=== PATIENT | female | born 1975 | race Caucasian/White ===

== ENCOUNTER 2017-03-01 09:31 | Emergency (ER) | payer BC ==
[2017-03-01 09:53] VITALS: BP 127/86
--- NOTE | 2017-03-01 11:36 | UC ---
Throat Pain/Nasal Sudeep HPI - HPI Summary HPI Summary: 3 WEEKS OF SORE THROAT, DID HAVE COUGH AND CONGESTION THEN DIAGNOSED AT THE TIME WITH VIRAL BRONCHITIS AT FIVE STAR; COUGH HAS RESOLVED. STILL HAVING CONGESTION AND SORE THROAT. NO FEVER. - History of Current Complaint Chief Complaint: UCGeneralIllness Stated Complaint: SORE THROAT Time Seen by Provider: 03/01/17 10:35 Hx Obtained From: Patient Hx Last Menstrual Period: 02/05/17 Onset/Duration: Gradual Onset, Lasting Weeks, Still Present Severity: Moderate Pain Intensity: 0 Pain Scale Used: 0-10 Numeric Cough: None Associated Signs & Symptoms: Positive: Hoarseness, Sinus Discomfort - Epiglottits Risk Factors Epiglottis Risk Factors: Negative - Allergies/Home Medications Allergies/Adverse Reactions: Allergies Allergy/AdvReac Type Severity Reaction Status Date / Time No Known Allergies Allergy Verified 03/01/17 09:49 Home Medications: Home Medications Phenol 1.4% T[place]* [Chloroseptic Throat Tougaloo*] 03/01/17 [History] PMH/Surg Hx/FS Hx/Imm Hx Previously Healthy: Yes - Surgical History Surgical History: Yes Surgery Procedure, Year, and Place: 2000 RIGHT UPPER THIGH HEMATOMA Surgery [facility]. 2013 [place] - Social History Alcohol Use: Occasionally Alcohol Amount: MAYBE 1-2 DRINKS Q3 MONTHS Substance Use Type: None Smoking Status (MU): Never Smoked Tobacco Have You Smoked in the Last Year: No Household Exposure Type: Cigarettes - Immunization History Most Recent Influenza Vaccination: 2013 Most Recent Tetanus Shot: 10 years Most Recent Pneumonia Vaccination: na Review of Systems Constitutional: Negative Skin: Negative Eyes: Negative ENT: Sore Throat, Sinus Congestion Respiratory: Negative Cardiovascular: Negative Gastrointestinal: Negative Genitourinary: Negative Motor: Negative Neurovascular: Negative Musculoskeletal: Negative Neurological: Negative Psychological: Negative All Other Systems Reviewed And Are Negative: Yes Physical Exam Triage Information Reviewed: Yes Appearance: Well-Appearing, No Pain Distress, Well-Nourished Vital Signs: Initial Vital Signs Temp 98.6 F 03/01/17 09:49 Pulse 80 03/01/17 09:49 Resp 16 03/01/17 09:49 BP 127/86 03/01/17 09:49 Pulse Ox 96 03/01/17 09:49 Vital Signs Reviewed: Yes Eye Exam: Normal ENT: Positive: Pharyngeal erythema, TM bulging, TM dull Dental Exam: Normal Neck exam: Normal Neck: Positive: Supple, Nontender, No Lymphadenopathy Respiratory Exam: Normal Respiratory: Positive: Chest non-tender, Lungs clear, Normal breath sounds, No respiratory distress, No accessory muscle use Cardiovascular Exam: Normal Cardiovascular: Positive: RRR, No Murmur, Pulses Normal Abdominal Exam: Normal Musculoskeletal Exam: Normal Neurological Exam: Normal Psychological Exam: Normal Skin Exam: Normal Throat Pain/Nasal Course/Dx - Differential Dx/Diagnosis Differential Diagnosis/HQI/PQRI: Pharyngitis, Sinusitis, Tonsillitis, URI Provider Diagnoses: SINUSITIS; PHARYNGITIS Discharge - Discharge Plan Condition: Stable Disposition: HOME Prescriptions: Amoxicillin/Clavulanate TAB* [Augmentin TAB 875*] 875 mg PO BID #20 tab Patient Education Materials: Pharyngitis (ED), Sinusitis (ED) Referrals: Yen Lee MD [Primary Care Provider] -
== END 2017-03-01 11:00 | disposition home or self-care (01) ==
LOC: UCEAST 09:31
DX: J02.9 Acute pharyngitis, unspecified (principal); J32.9 Chronic sinusitis, unspecified
CPT/HCPCS: 99212; G0463

== ENCOUNTER 2017-11-03 07:14 | Emergency (ER) | payer BC ==
[2017-11-03 07:30] VITALS: BP 147/91
--- NOTE | 2017-11-03 12:14 | UC ---
Joesph Sun Angela, scribed for Lucien Hale MD on 11/03/17 at 0728 . Abdominal Pain Female HPI - HPI Summary HPI Summary: This pt is a 42 y/o female presenting to [facility] c/o left lower quadrant since a couple of days ago. Pt notes her pain is localized to the LLQ and is constant. She reports her pain is 4 to 5 out of 10 in severity and describes it as nonradiating. Pt states nausea. Denies vomiting, fever. Pt notes this pain is similar to when she had diverticulitis. PMHx includes colitis, diverticulitis. - History of Current Complaint Stated Complaint: ABD PAIN Time Seen by Provider: 11/03/17 07:17 Hx Obtained From: Patient Hx Last Menstrual Period: 02/05/17 Onset/Duration: Lasting Days, Still Present Timing: Constant Severity Currently: Moderate Pain Intensity: 5 Pain Scale Used: 0-10 Numeric Location: Discrete At: LLQ Radiates: No Aggravating Factor(s): Nothing Alleviating Factor(s): Nothing Associated Signs and Symptoms: Positive: Nausea. Negative: Fever, Vomiting Allergies/Adverse Reactions: Allergies Allergy/AdvReac Type Severity Reaction Status Date / Time No Known Allergies Allergy Verified 11/03/17 07:30 PMH/Surg Hx/FS Hx/Imm Hx - Additional Past Medical History Additional PMH: PMHx: fracture of calcaneus Other Endocrine History: DENIES: diabetes GI/ History: Diverticulitis Other GI/ History: Colitis, acute cholecystitis, cholecystectomy - Surgical History Surgical History: Yes Surgery Procedure, Year, and Place: 2000 RIGHT UPPER THIGH HEMATOMA Surgery [facility] [place]. 2013 [place] - Family History Known Family History: Positive: Diabetes - Father Family History: Mother: throat CA - Social History Alcohol Use: Occasionally Alcohol Amount: MAYBE 1-2 DRINKS Q3 MONTHS Substance Use Type: None Smoking Status (MU): Never Smoked Tobacco Have You Smoked in the Last Year: No Household Exposure Type: Cigarettes - Immunization History Most Recent Influenza Vaccination: 2013 Most Recent Tetanus Shot: 10 years Most Recent Pneumonia Vaccination: na Review of Systems Constitutional: Negative Skin: Negative Eyes: Negative ENT: Negative Respiratory: Negative Cardiovascular: Negative Gastrointestinal: Abdominal Pain, Nausea, Other - NEG: vomiting Genitourinary: Negative Motor: Negative Neurovascular: Negative Musculoskeletal: Negative Neurological: Negative Psychological: Negative All Other Systems Reviewed And Are Negative: Yes Physical Exam - Summary Physical Exam Summary: VITAL SIGNS: Reviewed. GENERAL: Patient is an obese female who is lying comfortable in the stretcher. Patient is not in any acute distress. HEAD AND FACE: Normocephalic EYES: PERRLA, EOMI x 2. EARS: Hearing grossly intact. MOUTH: Oropharynx within normal limits. NECK: Supple, trachea is midline, no adenopathy, no JVD, no carotid bruit. CHEST: Symmetric, no tenderness at palpation LUNGS: Clear to auscultation bilaterally. No wheezing or crackles. CVS: Regular rate and rhythm, S1 and S2 present, no murmurs or gallops appreciated. ABDOMEN: Soft. Left lower quadrant tenderness. Left pelvic tenderness. Bowel sounds are normal. No abdominal abnormal pulsations. EXTREMITIES: Full ROM in all major joints, no edema, no cyanosis or clubbing. NEURO: Alert and oriented x 3. No acute neurological deficits. Speech is normal and follows commands. SKIN: Dry and warm Triage Information Reviewed: Yes Vital Signs: Initial Vitals Temp Pulse Resp BP Pulse Ox 97.9 F 83 20 147/91 100 11/03/17 07:24 11/03/17 07:24 11/03/17 07:24 11/03/17 07:24 11/03/17 07:24 Vital Signs Reviewed: Yes Abd Pain Female Course/Dx - Course Course Of Treatment: This pt is a 42 y/o female presenting to [facility] c/o left lower quadrant since a couple of days ago. Pt notes her pain is localized to the LLQ and is constant. She reports her pain is 4 to 5 out of 10 in severity and describes it as nonradiating. Pt states nausea. Denies vomiting. Pt notes this pain is similar to when she had diverticulitis. On physical exam pt has left lower quadrant tenderness and left pelvic tenderness. She is in no acute distress. Therefore, she was instructed to go to the emergency room for further assessment. Pt was offered ambulance but she declines ambulance. She will drive to the ED via private car. Pt understands and agrees. All questions were answered to patient satisfaction. Pt will be discharged to go immediately to the emergency department. Pt is hemodynamically stable, alert and oriented x3. The patient was found to have increased blood pressure in UC. The patient will follow up with PCP for better control of BP. - Differential Dx/Diagnosis Provider Diagnoses: Acute abdominal pain Discharge - Sign-Out/Discharge Documenting (check all that apply): Discharge - discharge to home - Discharge Plan Condition: Stable Disposition: HOME Patient Education Materials: Acute Abdominal Pain (ED) Referrals: Yen Lee MD [Primary Care Provider] - Additional Instructions: Please go directly to the Emergency Department for further assessment. Patient declined ambulance. RETURN TO URGENT CARE OR THE ED FOR ANY WORSENING OR NEW SYMPTOMS. The documentation as recorded by the Joesph mensah Angela accurately reflects the service I personally performed and the decisions made by Geoffrey elliott Walter, MD.
== END 2017-11-03 07:32 | disposition home or self-care (01) ==
LOC: UCEAST 07:14
DX: R10.32 Left lower quadrant pain (principal); R11.0 Nausea; K57.92 Diverticulitis of intestine, part unspecified, without perforation or abscess without bleeding
CPT/HCPCS: 99212; G0463

== ENCOUNTER 2017-11-03 08:12 | Emergency (ER) | payer BC ==
[2017-11-03] MEDS ORDERED: NS 0.9% 1000 ML* 2,000 ML IV ONE (08:26)
[2017-11-03 09:05] LABS: ABS Basophils 0 10^3/ul (0-0.2); ABS Eosinophils 0.3 10^3/ul (0-0.6); ABS Neutrophils 12.7 10^3/ul (1.5-7.7); ABS Nucleated RBC 0 10^3/ul; Eosinophil % 1.7 % (0-6); Hematocrit 42 % (35-47); Hemoglobin 13.8 g/dl (12.0-16.0); Lymphocyte % 12.3 % (25-47); Mean Corpuscular HGB Conc 33 g/dl (31-36); Mean Corpuscular Hemoglobin 30 pg (27-31); Mean Corpuscular Volume 90 fL (80-97); Mean Platelet Volume 6.5 um3 (7.4-10.4); Nucleated Red Blood Cells % 0; Platelet Count 353 10^3/ul (150-450); Red Blood Count 4.68 10^6/ul (4.0-5.4); Red Cell Distribution Width 14 % (10.5-15); White Blood Count 16.1 10^3/ul (3.5-10.8)
[2017-11-03 09:17] LABS: EGFR Non-African American 73.3 (>60)
[2017-11-03 09:19] LABS: INR 0.93 (0.77-1.02)
[2017-11-03 10:02] LABS: Urine Appearance Clear; Urine Blood Negative (Negative); Urine Color Yellow; Urine Ketones Negative (Negative); Urine Protein Negative (Negative); Urine Specific Gravity 1.009 (1.010-1.030); Urine Urobilinogen Negative (Negative)
[2017-11-03] MEDS ORDERED: Iohexol 300* (CONTRAST) 10 ML SDV IV ONE (10:30)
--- NOTE | 2017-11-03 11:25 | RAD ---
Indication: Abdominal pain, left lower quadrant pain. Contrast: Administered 150.0 ml of OMNIPAQUE 300 mg/ml CT of the abdomen and pelvis was performed after oral and IV contrast administration. Coronal and sagittal reconstructed images were obtained. The lung bases demonstrate no pleural fluid, nodules or masses. Heart is of normal size without evidence of pericardial effusion. The liver is normal in size. No focal lesions or intrahepatic biliary duct dilatation is noted. The spleen is normal in size. The pancreas demonstrates no mass or pancreatic duct dilatation. The common duct is not dilated. No adrenal masses are noted. The kidneys demonstrate symmetric nephrograms without focal lesions. The pancreas demonstrates no mass or pancreatic duct dilatation. The patient is status post cholecystectomy. No retroperitoneal adenopathy. No dilated loops of bowel are noted. Contrast is noted in the right colon. CT of the pelvis demonstrates wall thickening of the sigmoid colon with underlying diverticulosis. There is infiltration of fat consistent with diverticulitis. No evidence of peridiverticular abscess is noted. Ovaries demonstrates bilateral ovarian cysts. Likely myomatous changes or nabothian cysts are noted. No hernias are noted. Urinary bladder is otherwise unremarkable. IMPRESSION: Diverticulitis of the sigmoid colon without evidence of peridiverticular abscess. There is likely bilateral ovarian cysts present. Low density lesions are noted in the lower uterus or cervix which may represent fibroids or nabothian cysts. Patient is status post cholecystectomy.
[2017-11-03] MEDS ORDERED: metroNIDAZOLE TAB* 250 MG PO ONE (12:24)
[2017-11-03] MEDS ORDERED: Ciprofloxacin TAB* 500 MG PO ONE (12:25)
--- NOTE | 2017-11-03 12:31 | ED ---
Tam Sun Jennifer, scribed for Lane Baumann MD on 11/03/17 at 0831 . Abdominal Pain/Female - HPI Summary HPI Summary: The patient is a 42 year old female who was sent [facility] with LLQ abdominal pain that began yesterday. The patient explains that she had diverticulitis 2-3 years ago, which improved after being given antibiotics. She rates the pain a 4/ 10. She additionally complains of nausea and reports her last bowel movement was yesterday. The patient denies fever, chills, dysuria, vaginal discharge, shortness of breath, and swelling. Her last menstrual period was two weeks ago. - History of Current Complaint Chief Complaint: EDAbdPain Stated Complaint: ABD PAIN-SENT FROM [facility] Hx Obtained From: Patient Hx Last Menstrual Period: 2 weeks ago Onset/Duration: Sudden Onset, Lasting Days - 1 day, Still Present Timing: Constant Severity Initially: Moderate Severity Currently: Moderate Pain Intensity: 4 Pain Scale Used: 0-10 Numeric Location: Discrete At: LLQ Radiates: No Aggravating Factor(s): Nothing Alleviating Factor(s): Nothing Associated Signs and Symptoms: Positive: Other: - nausea. NEGATIVE: fever, chills, dysuria, vaginal discharge, shortness of breath, swelling Allergies/Adverse Reactions: Allergies Allergy/AdvReac Type Severity Reaction Status Date / Time No Known Allergies Allergy Verified 11/03/17 07:30 PMH/Surg Hx/FS Hx/Imm Hx Endocrine/Hematology History: Denies: Hx Diabetes, Hx Thyroid Disease Cardiovascular History: Reports: Hx Hypertension Denies: Hx Congestive Heart Failure, Hx Pacemaker/ICD Respiratory History: Denies: Hx Asthma, Hx Chronic Obstructive Pulmonary Disease (COPD) GI History: Denies: Hx Ulcer Comment Only: Other GI Disorders - 01/2014 DIVERTICULITIS History: Denies: Hx Renal Disease Sensory History: Denies: Hx Contacts or Glasses, Hx Hearing Aid Opthamlomology History: Denies: Hx Contacts or Glasses Psychiatric History: Denies: Hx Panic Disorder - Surgical History Surgery Procedure, Year, and Place: 2000 RIGHT UPPER THIGH HEMATOMA Surgery [facility]. 2013 [place] Hx Anesthesia Reactions: No Infectious Disease History: No Infectious Disease History: Denies: Hx Hepatitis, Hx Human Immunodeficiency Virus (HIV), Traveled Outside the [place] in Last 30 Days - Family History Known Family History: Positive: Hypertension - Maternal and Paternal - Social History Alcohol Use: Occasionally Alcohol Amount: MAYBE 1-2 DRINKS Q3 MONTHS Substance Use Type: Reports: None Smoking Status (MU): Never Smoked Tobacco Have You Smoked in the Last Year: No Review of Systems Negative: Fever, Chills Negative: Shortness Of Breath Positive: Abdominal Pain, Nausea Negative: dysuria, discharge Negative: Edema All Other Systems Reviewed And Are Negative: Yes Physical Exam - Summary Physical Exam Summary: General: well-appearing, no pain distress Skin: warm, color reflects adequate perfusion, dry Head: normal Eyes: EOMI, DEAN ENT: normal Neck: supple, nontender Respiratory: CTA, breath sounds present Cardiovascular: RRR Abdomen: soft, mild tenderness in LLQ Bowel: present Musculoskeletal: normal, strength/ROM intact Neurological: normal, sensory/motor intact, A&O x3 Psychological: affect/mood appropriate Triage Information Reviewed: Yes Vital Signs On Initial Exam: Initial Vitals Temp Pulse Resp BP Pulse Ox 98.5 F 87 18 136/87 98 11/03/17 08:14 11/03/17 08:14 11/03/17 08:14 11/03/17 08:14 11/03/17 08:14 Vital Signs Reviewed: Yes Diagnostics - Vital Signs Vital Signs Temp Pulse Resp BP Pulse Ox 11/03/17 08:14 98.5 F 87 18 136/87 98 - Laboratory Lab Results: Lab Results 11/03/17 11/03/17 11/03/17 Range/Units 08:42 08:42 08:42 WBC 16.1 H (3.5-10.8) 10^3/ul RBC 4.68 (4.0-5.4) 10^6/ul Hgb 13.8 (12.0-16.0) g/dl Hct 42 (35-47) % MCV 90 (80-97) fL MCH 30 (27-31) pg MCHC 33 (31-36) g/dl RDW 14 (10.5-15) % Plt Count 353 (150-450) 10^3/ul MPV 6.5 L (7.4-10.4) um3 Neut % (Auto) 79.2 (38-83) % Lymph % (Auto) 12.3 L (25-47) % [place]aine % (Auto) 6.5 (0-7) % Eos % (Auto) 1.7 (0-6) % Baso % (Auto) 0.3 (0-2) % Absolute Neuts (auto) 12.7 H (1.5-7.7) 10^3/ul Absolute Lymphs (auto) 2.0 (1.0-4.8) 10^3/ul Absolute Monos (auto) 1.0 H (0-0.8) 10^3/ul Absolute Eos (auto) 0.3 (0-0.6) 10^3/ul Absolute Basos (auto) 0 (0-0.2) 10^3/ul Absolute Nucleated RBC 0 10^3/ul Nucleated RBC % 0 INR (Anticoag Therapy) 0.93 (0.77-1.02) APTT 34.0 (26.0-36.3) seconds Sodium 136 L (139-145) mmol/L Potassium 4.4 (3.5-5.0) mmol/L Chloride 103 (101-111) mmol/L Carbon Dioxide 28 (22-32) mmol/L Anion Gap 5 (2-11) mmol/L BUN 16 (6-24) mg/dL Creatinine 0.85 (0.51-0.95) mg/dL Est GFR ( Amer) 94.3 (>60) Est GFR (Non-Af Amer) 73.3 (>60) BUN/Creatinine Ratio 18.8 (8-20) Glucose 97 (70-100) mg/dL Lactic Acid (0.5-2.0) mmol/L Calcium 9.4 (8.6-10.3) mg/dL Total Bilirubin 0.50 (0.2-1.0) mg/dL AST 11 L (13-39) U/L ALT 11 (7-52) U/L Alkaline Phosphatase 68 (34-104) U/L C-Reactive Protein 37.63 H (< 5.00) mg/L Total Protein 7.3 (6.4-8.9) g/dL Albumin 4.1 (3.2-5.2) g/dL Globulin 3.2 (2-4) g/dL Albumin/Globulin Ratio 1.3 (1-3) Lipase 21 (11.0-82.0) U/L Urine Color Urine Appearance Urine pH (5-9) Ur Specific [place] (1.010-1.030) Urine Protein (Negative) Urine Ketones (Negative) Urine Blood (Negative) Urine Nitrate (Negative) Urine Bilirubin (Negative) Urine Urobilinogen (Negative) Ur Leukocyte Esterase (Negative) Urine Glucose (Negative) 11/03/17 11/03/17 Range/Units 08:42 09:50 WBC (3.5-10.8) 10^3/ul RBC (4.0-5.4) 10^6/ul Hgb (12.0-16.0) g/dl Hct (35-47) % MCV (80-97) fL MCH (27-31) pg MCHC (31-36) g/dl RDW (10.5-15) % Plt Count (150-450) 10^3/ul MPV (7.4-10.4) um3 Neut % (Auto) (38-83) % Lymph % (Auto) (25-47) % Blaine % (Auto) (0-7) % Eos % (Auto) (0-6) % Baso % (Auto) (0-2) % Absolute Neuts (auto) (1.5-7.7) 10^3/ul Absolute Lymphs (auto) (1.0-4.8) 10^3/ul Absolute Monos (auto) (0-0.8) 10^3/ul Absolute Eos (auto) (0-0.6) 10^3/ul Absolute Basos (auto) (0-0.2) 10^3/ul Absolute Nucleated RBC 10^3/ul Nucleated RBC % INR (Anticoag Therapy) (0.77-1.02) APTT (26.0-36.3) seconds Sodium (139-145) mmol/L Potassium (3.5-5.0) mmol/L Chloride (101-111) mmol/L Carbon Dioxide (22-32) mmol/L Anion Gap (2-11) mmol/L BUN (6-24) mg/dL Creatinine (0.51-0.95) mg/dL Est GFR ( Amer) (>60) Est GFR (Non-Af Amer) (>60) BUN/Creatinine Ratio (8-20) Glucose (70-100) mg/dL Lactic Acid 0.8 (0.5-2.0) mmol/L Calcium (8.6-10.3) mg/dL Total Bilirubin (0.2-1.0) mg/dL AST (13-39) U/L ALT (7-52) U/L Alkaline Phosphatase (34-104) U/L C-Reactive Protein (< 5.00) mg/L Total Protein (6.4-8.9) g/dL Albumin (3.2-5.2) g/dL Globulin (2-4) g/dL Albumin/Globulin Ratio (1-3) Lipase (11.0-82.0) U/L Urine Color Yellow Urine Appearance Clear Urine pH 5.0 (5-9) Ur Specific [place] 1.009 L (1.010-1.030) Urine Protein Negative (Negative) Urine Ketones Negative (Negative) Urine Blood Negative (Negative) Urine Nitrate Negative (Negative) Urine Bilirubin Negative (Negative) Urine Urobilinogen Negative (Negative) Ur Leukocyte Esterase Negative (Negative) Urine Glucose Negative (Negative) Result Diagrams: 11/03/17 08:42 11/03/17 08:42 Lab Statement: Any lab studies that have been ordered have been reviewed, and results considered in the medical decision making process. - CT CT Abd/Pel CT Interpretation: Positive (See Comments) - Diverticulitis of the sigmoid colon without evidence of peridiverticular abscess. There is likely bilateral ovarian cysts present. Low density lesions are noted in the lower uterus or cervix which may represent fibroids or nabothian cysts. Patient is status post cholecystectomy. Dr. Baumann has reviewed this report. CT Interpretation Completed By: Radiologist Abdominal Pain Fem Course/Dx - Course Course Of Treatment: Medications reviewed. BP noted and advised to follow up with PCP. DISCUSSED RESULTS WITH THE PATIENT. RX CIPRO/FLAGY. DISCUSSED S/SX OF DIVERTICULITIS AND THE NEED TO RETURN TO THE ED IF WORSE. F/U PMD; RETURN IF WORSE. - Diagnoses Provider Diagnoses: HTN (hypertension), Diverticulitis Discharge - Sign-Out/Discharge Documenting (check all that apply): Discharge - Discharge Plan Condition: Stable Disposition: HOME Prescriptions: Ciprofloxacin TAB* [Cipro 500 MG TAB*] 500 mg PO BID #19 tab metroNIDAZOLE [Flagyl 500 MG TAB] 500 mg PO TID #29 tab Patient Education Materials: Diverticulitis (ED), Diverticulitis Diet (ED) Referrals: Yen Lee MD [Primary Care Provider] - Additional Instructions: FOLLOW UP WITH YOUR DOCTOR. RETURN TO THE EMERGENCY DEPARTMENT FOR ANY WORSENING OF YOUR CONDITION; PAIN, FEVER, DEHYDRATION, YOU FEEL ILL, YOU FEEL LIKE PASSING OUT OR QUESTIONS OR CONCERNS. YOUR BLOOD PRESSURE WAS ELEVATED TODAY; FOLLOW UP WITH YOUR PRIMARY CARE DOCTOR WITHIN ONE WEEK. - Billing Disposition and Condition Condition: STABLE Disposition: HOME The documentation as recorded by the Tam mensah Jennifer accurately reflects the service I personally performed and the decisions made by me, Lane Baumann MD.
[2017-11-03 12:58] VITALS: BP 129/86
== END 2017-11-03 13:01 | disposition home or self-care (01) ==
LOC: ED 08:12
DX: I10 Essential (primary) hypertension (principal); K57.92 Diverticulitis of intestine, part unspecified, without perforation or abscess without bleeding; R10.32 Left lower quadrant pain; R11.10 Vomiting, unspecified
CPT/HCPCS: 36415; 74177; 80053; 81003; 83605; 83690; 85025; 85610; 85730; 86140; 99282; A9270-GY; Q9967

== ENCOUNTER 2018-10-01 11:30 | Emergency (ER) | payer BC ==
[2018-10-01 12:56] LABS: ABS Basophils 0.1 10^3/ul (0-0.2); ABS Eosinophils 0.1 10^3/ul (0-0.6); ABS Lymphocytes 2.1 10^3/ul (1.0-4.8); ABS Neutrophils 11.8 10^3/ul (1.5-7.7); ABS Nucleated RBC 0 10^3/ul; Hematocrit 46 % (33-41); Hemoglobin 14.9 g/dL (12.0-16.0); Lymphocyte % 13.6 %; Mean Corpuscular HGB Conc 33 g/dL (31-36); Mean Corpuscular Hemoglobin 29 pg (27-31); Mean Corpuscular Volume 89 fL (80-97); Mean Platelet Volume 6.5 fL (7.4-10.4); Nucleated Red Blood Cells % 0; Platelet Count 398 10^3/uL (150-450); Red Blood Count 5.13 10^6 /uL (3.70-4.87); Red Cell Distribution Width 15 % (10.5-15); White Blood Count 15.1 10^3/uL (3.5-10.8)
[2018-10-01 13:13] LABS: ALT 23 U/L (7-52); AST 18 U/L (13-39); Albumin 3.7 g/dL (3.2-5.2); Albumin/Globulin Ratio 1.2 (1-3); Alkaline Phosphatase 58 U/L (34-104); Anion Gap 4 mmol/L (2-11); BUN/Creatinine Ratio 18.1 (8-20); Blood Urea Nitrogen 15 mg/dL (6-24); C Reactive Protein 49.94 mg/L (<8.01); CO2 Carbon Dioxide 28 mmol/L (22-32); Calcium 8.9 mg/dL (8.6-10.3); Chloride 103 mmol/L (101-111); EGFR African American 90.8 (>60); Glucose 97 mg/dL (70-100); Potassium 4.3 mmol/L (3.5-5.0); Sodium 135 mmol/L (135-145); Total Protein 6.7 g/dL (6.4-8.9)
[2018-10-01 13:18] LABS: HCG Pregnancy < 0.60 mIU/mL
[2018-10-01] MEDS ORDERED: Morphine 4 MG/ML VIAL (1 ml) 4 MG/ML VIAL IV ONE (13:59)
[2018-10-01] MEDS ORDERED: NS 0.9% 1000 ML** 1,000 ML IV ONE (13:59)
[2018-10-01] MEDS ORDERED: Ondansetron INJ* 2 MG/ML VIAL IV ONE (13:59)
[2018-10-01] MEDS ORDERED: Iohexol 300* (CONTRAST) 10 ML SDV IV ONE (14:01)
--- NOTE | 2018-10-01 14:07 | ED ---
Abdominal Pain/Female - HPI Summary HPI Summary: Patient is a 43-year-old female presenting to the ED with a three-day worsening history of mid abdominal pain radiating into the RLQ. History of diverticulitis and cholecystitis with a cholecystectomy. She endorses nausea and vomiting. She endorses diarrhea, but no constipation. Denies any fevers, sweats, chills. Denies any CP or SOB. She endorses early satiety, however continues to try to eat and drink over the past 3 days. - History of Current Complaint Chief Complaint: EDAbdPain Stated Complaint: STOMACH PAIN PER PT Time Seen by Provider: 10/01/18 13:46 Hx Obtained From: Patient Hx Last Menstrual Period: 2 weeks ago ?: No Onset/Duration: Sudden Onset Timing: Constant Severity Initially: Moderate Severity Currently: Moderate Pain Intensity: 4 Pain Scale Used: 0-10 Numeric Location: Other - midepigastric pain radiating to the RLQ Radiates: No Radiates to: RLQ Character: Sharp, Cramping Aggravating Factor(s): Nothing Alleviating Factor(s): Nothing Associated Signs and Symptoms: Positive: Nausea, Vomiting, Diarrhea - Risk Factors Ectopic Risk Factor: Negative Ovarian Torsion Risk Factor: Negative Allergies/Adverse Reactions: Allergies Allergy/AdvReac Type Severity Reaction Status Date / Time No Known Allergies Allergy Verified 10/01/18 11:38 Home Medications: Home Medications Dicyclomine CAP* [Bentyl CAP*] 10 mg PO TID PRN 10/01/18 [History Confirmed ] PMH/Surg Hx/FS Hx/Imm Hx Previously Healthy: Yes Endocrine/Hematology History: Denies: Hx Diabetes, Hx Thyroid Disease Cardiovascular History: Reports: Hx Hypertension Denies: Hx Congestive Heart Failure, Hx Pacemaker/ICD Respiratory History: Denies: Hx Asthma, Hx Chronic Obstructive Pulmonary Disease (COPD) GI History: Denies: Hx Ulcer Comment Only: Other GI Disorders - 01/2014 DIVERTICULITIS History: Denies: Hx Renal Disease Sensory History: Denies: Hx Contacts or Glasses, Hx Hearing Aid Opthamlomology History: Denies: Hx Contacts or Glasses Psychiatric History: Denies: Hx Panic Disorder - Surgical History Surgery Procedure, Year, and Place: 2000 RIGHT UPPER THIGH HEMATOMA Surgery [facility]. 2013 GALLBLADDER Hx Anesthesia Reactions: No - Immunization History Hx Pertussis Vaccination: No Immunizations Up to Date: Yes Infectious Disease History: No Infectious Disease History: Denies: Hx Hepatitis, Hx Human Immunodeficiency Virus (HIV), Traveled Outside the [place] in Last 30 Days - Family History Known Family History: Positive: Hypertension - Maternal and Paternal - Social History Occupation: Employed Full-time Lives: With Family Alcohol Use: Rare Alcohol Amount: MAYBE 1-2 DRINKS Q3 MONTHS Hx Substance Use: No Substance Use Type: Reports: None Hx Tobacco Use: No Smoking Status (MU): Never Smoked Tobacco Have You Smoked in the Last Year: No Review of Systems Constitutional: Negative Negative: Fever, Chills, Fatigue, Skin Diaphoresis Negative: Palpitations, Chest Pain Negative: Shortness Of Breath, Cough Positive: Abdominal Pain - midepigastric pain radiating to the RLQ, Vomiting, Diarrhea, Nausea Genitourinary: Negative Positive: no symptoms reported, see HPI Musculoskeletal: Negative Psychological: Normal All Other Systems Reviewed And Are Negative: Yes Physical Exam Triage Information Reviewed: Yes Vital Signs On Initial Exam: Initial Vitals Temp Pulse Resp BP Pulse Ox 98.8 F 81 18 147/94 98 10/01/18 11:34 10/01/18 11:34 10/01/18 11:34 10/01/18 11:34 10/01/18 11:34 Vital Signs Reviewed: Yes Appearance: Positive: Well-Appearing, Well-Nourished Skin: Positive: Warm, Skin Color Reflects Adequate Perfusion Head/Face: Positive: Normal Head/Face Inspection Eyes: Positive: EOMI, DEAN, Conjunctiva Clear Neck: Positive: Supple, No Lymphadenopathy Respiratory/Lung Sounds: Positive: Clear to Auscultation, Breath Sounds Present Cardiovascular: Positive: Pulses are Symmetrical in both Upper and Lower Extremities Abdomen Description: Positive: Other: - Tenderness to the epigastric region and mid abdominal pain radiating to the RLQ, McBurney's point tenderness, positive Rovsing's, tenderness to the left lower quadrant. No tenderness to the LUQ R RUQ. Negative Perry's. Patient is s/p cholecystectomy Neurological: Positive: Sensory/Motor Intact, Alert, Oriented to Person Place, Time Psychiatric: Positive: Affect/Mood Appropriate AVPU Assessment: Alert Diagnostics - Vital Signs Vital Signs Temp Pulse Resp BP Pulse Ox 10/01/18 11:34 98.8 F 81 18 147/94 98 - Laboratory Lab Results: Lab Results 03/10/01/18 10/01/18 Range/Units 12:46 12:46 12:46 WBC 15.1 H (3.5-10.8) 10^3/uL RBC 5.13 H (3.70-4.87) 10^6 /uL Hgb 14.9 (12.0-16.0) g/dL Hct 46 H (33-41) % MCV 89 (80-97) fL MCH 29 (27-31) pg MCHC 33 (31-36) g/dL RDW 15 (10.5-15) % Plt Count 398 (150-450) 10^3/uL MPV 6.5 L (7.4-10.4) fL Neut % (Auto) 78.0 % Lymph % (Auto) 13.6 % [place] % (Auto) 6.9 % Eos % (Auto) 1.0 % Baso % (Auto) 0.5 % Absolute Neuts (auto) 11.8 H (1.5-7.7) 10^3/ul Absolute Lymphs (auto) 2.1 (1.0-4.8) 10^3/ul Absolute Monos (auto) 1.0 H (0-0.8) 10^3/ul Absolute Eos (auto) 0.1 (0-0.6) 10^3/ul Absolute Basos (auto) 0.1 (0-0.2) 10^3/ul Absolute Nucleated RBC 0 10^3/ul Nucleated RBC % 0 Sodium 135 (135-145) mmol/L Potassium 4.3 (3.5-5.0) mmol/L Chloride 103 (101-111) mmol/L Carbon Dioxide 28 (22-32) mmol/L Anion Gap 4 (2-11) mmol/L BUN 15 (6-24) mg/dL Creatinine 0.83 (0.51-0.95) mg/dL Est GFR ( Amer) 90.8 (>60) Est GFR (Non-Af Amer) 75.0 (>60) BUN/Creatinine Ratio 18.1 (8-20) Glucose 97 (70-100) mg/dL Lactic Acid 0.5 (0.5-2.0) mmol/L Calcium 8.9 (8.6-10.3) mg/dL Total Bilirubin 0.60 (0.2-1.0) mg/dL AST 18 (13-39) U/L ALT 23 (7-52) U/L Alkaline Phosphatase 58 (34-104) U/L C-Reactive Protein 49.94 H (<8.01) mg/L Total Protein 6.7 (6.4-8.9) g/dL Albumin 3.7 (3.2-5.2) g/dL Globulin 3.0 (2-4) g/dL Albumin/Globulin Ratio 1.2 (1-3) Lipase 16 (11.0-82.0) U/L Beta HCG, Quant < 0.60 mIU/mL Result Diagrams: 10/01/18 12:46 10/01/18 12:46 Lab Statement: Any lab studies that have been ordered have been reviewed, and results considered in the medical decision making process. Abdominal Pain Fem Course/Dx - Course Course Of Treatment: Patient is an obese otherwise healthy 43-year-old female with a history of cholecystectomy and history of diverticulitis presenting to the ED with a 3 day history of mid abdominal pain radiating to the RLQ. She denies any urinary symptoms or back pain. She states this feels different than her diverticulitis pain. On arrival, labs are obtained which show an elevated white count of 15.1. Also an elevated CRP. She is given fluids, Zofran and morphine. CT abdomen and pelvis with IV contrast only obtained due to BMI status. On physical exam, patient has diffuse tenderness without guarding or rigidity. Negative rovsings, negative obturator. She endorses 3/10 constant aching pain in all [address] abd/pelvis: IMPRESSION: NO OBSTRUCTION. SMALL AMOUNT OF ASCITES. THERE IS MUCOSAL THICKENING OF THE DISTAL SMALL BOWEL, SUGGESTIVE OF ENTERITIS. DIVERTICULOSIS. Patient is feeling improved after fluids, zofran and morphine. Denies pain currently. Denies N/V. As appendix was not well visualized, I have offered CT with oral contrast. Patient declines and states she will f/u with PCP or return to the ED for worsening/changing sxs. She is given zofran and tramadol as RX. - Diagnoses Provider Diagnoses: Nausea & vomiting, Abdominal pain Discharge - Sign-Out/Discharge Documenting (check all that apply): Patient Departure Patient Received Moderate/Deep Sedation with Procedure: No - Discharge Plan Condition: Stable Disposition: HOME Prescriptions: Ondansetron ODT TAB* [Zofran 4 MG Odt TAB*] 4 mg PO Q6H PRN #12 tab.odt MDD 4 PRN Reason: Nausea traMADol TAB* [Ultram*] 50 mg PO Q8H PRN #12 tab MDD 3 PRN Reason: Pain Patient Education Materials: Acute Abdominal Pain (ED), Enteritis (ED) Forms: *Work Release Referrals: Yen Lee MD [Primary Care Provider] - Additional Instructions: Zofran four times daily for nausea Tramadol three times daily as needed for pain Tylenol three times daily for pain on opposite schedule of the tramadol Moist heat to the area as much as possible rest bland diet Return to the ED if you develop any worsening symptoms Please follow-up with her primary in 1-2 days - Billing Disposition and Condition Condition: STABLE Disposition: Home
[2018-10-01 15:57] VITALS: BP 128/87
== END 2018-10-01 15:57 | disposition home or self-care (01) ==
LOC: ED 11:30
DX: R11.2 Nausea with vomiting, unspecified (principal); R10.31 Right lower quadrant pain; I10 Essential (primary) hypertension
CPT/HCPCS: 36415; 74177; 80053; 83605; 83690; 84702; 85025; 86140; 96374; 96375; 99283; J2270; J2405; Q9967